=== PATIENT | male | born 1985 | race Caucasian/White ===

== ENCOUNTER 2016-12-19 08:52 | Emergency (ER) | payer OTHER ==
[2016-12-19 09:04] VITALS: BP 110/70; PULSE 65; TEMP 97.8; BMI 35.9
--- NOTE | 2016-12-19 09:37 | PDOC ---
History of Present Illness - General Chief Complaint: Cold Symptoms Stated Complaint: COUGH, CONGESTION, THROAT PAIN Time Seen by Provider: 12/19/16 09:10 History Source: Patient Exam Limitations: No Limitations - History of Present Illness Initial Comments: 12/19/16 09:34 31 yr male with sneezing nasal congestion for 3 days. Pt denies shortness of breath or cough, has sore throat. Pt' s young son with same at home. Pt has asthma well controlled . Past History - Past Medical History Allergies/Adverse Reactions: Allergies Allergy/AdvReac Type Severity Reaction Status Date / Time No Known Allergies Allergy Verified 12/19/16 09:00 Home Medications: Ambulatory Orders Oseltamivir Phosphate [Tamiflu -] 75 mg PO BID #10 capsule 09/02/16 Fluticasone Prop 0.05% Nasal [Flonase -] 1 - 2 spray NS DAILY #1 spray.pump Asthma: Yes Suicide Attempt (Hx): No - Psycho/Social/Smoking Cessation Hx Anxiety: No Suicidal Ideation: No Smoking History: Never smoked Have you smoked in the past 12 months: No Number of Cigarettes Smoked Daily: 5 Information on smoking cessation initiated: Yes 'Breaking Loose' booklet given: 12/19/16 Hx Alcohol Use: No Drug/Substance Use Hx: No Substance Use Type: None Respiratory Specific PMHX - Complaint Specific PMHX Bronchitis: No Pneumonia: No Review of Systems - Review of Systems Able to Perform ROS?: Yes Is the patient limited Mauritian proficient: No Constitutional: No: Symptoms Reported HEENTM: Yes: See HPI Cardiac (ROS): No: Symptoms Reported ABD/GI: No: Symptoms Reported : No: Symptoms Reported Musculoskeletal: No: Symptoms Reported Integumentary: No: Symptoms Reported Neurological: No: Symptoms reported *Physical Exam - Vital Signs Last Vital Signs Temp Pulse Resp BP Pulse Ox 97.8 F 65 18 110/70 100 12/19/16 09:00 12/19/16 09:00 12/19/16 09:00 12/19/16 09:00 12/19/16 09:00 - Physical Exam General Appearance: Yes: Nourished, Appropriately Dressed HEENT: positive: EOMI, MENDOZA, TMs Normal, Pharyngeal Erythema, Nasal Congestion. negative: Sinus Tenderness Neck: positive: Supple. negative: Tender Respiratory/Chest: positive: Lungs Clear, Normal Breath Sounds. negative: Wheezing Cardiovascular: positive: Regular Rhythm, Regular Rate Medical Decision Making - Medical Decision Making 12/19/16 09:36 cc: sneezing, nasal congestion, sore throat states fever last night took ibuprofen well appearing non toxic will r/o strep r/o flu *DC/Admit/Observation/Transfer Diagnosis at time of Disposition: Viral URI - Discharge Dispostion Disposition: HOME Condition at time of disposition: Good - Prescriptions Prescriptions: Fluticasone Prop 0.05% Nasal [Flonase -] 1 - 2 spray NS DAILY #1 spray.pump - Referrals Referrals: Rodolfo Pierre MD [Primary Care Provider] - Mukesh Stapleton MD [Staff Physician] - - Patient Instructions Additional Instructions: negative for strep and negative for Flu B or A drink pleanty of fluids gargle with warm salt water 4-5 times a day to help with sore throat honey and lemon in tea is helpful increase vitamin C and Zinc intake use the prescribed nasal spray for sinus congestion discharge , sneezing follow with ENT if symptoms worsen or persist
== END 2016-12-19 10:49 | disposition home or self-care (01) ==
LOC: JERFT 08:52
DX: J06.9 Acute upper respiratory infection, unspecified (principal); B34.9 Viral infection, unspecified; J45.909 Unspecified asthma, uncomplicated
CPT/HCPCS: 87070; 87430; 87804; 99281-25

== ENCOUNTER 2017-04-09 11:48 | Emergency (ER) | payer OTHER ==
[2017-04-09 11:56] VITALS: BP 123/73; PULSE 66; TEMP 98.3; BMI 34.4
--- NOTE | 2017-04-09 12:41 | PDOC ---
History of Present Illness - General Chief Complaint: Rash Stated Complaint: HEADACHE Time Seen by Provider: 04/09/17 12:19 History Source: Patient - History of Present Illness Initial Comments: 04/09/17 12:31 32 year old male with localized pustules to occipital area of scalp. reports shaving head a few days ago. no other pustular areas noted to face . denies fever. patient reports tingling and slight pain at the site. Past History - Past Medical History Allergies/Adverse Reactions: Allergies Allergy/AdvReac Type Severity Reaction Status Date / Time No Known Allergies Allergy Verified 04/09/17 11:56 Home Medications: Ambulatory Orders Mupirocin Ointment [Bactroban 2% Ointment -] 1 applic TP TID #1 applic 04/09/17 Sulfamethoxazole/Trimethoprim [Bactrim Ds -] 1 tab PO BID #14 tablet 04/09/17 Asthma: Yes Suicide Attempt (Hx): No - Psycho/Social/Smoking Cessation Hx Anxiety: No Suicidal Ideation: No Smoking History: Never smoked Have you smoked in the past 12 months: No Number of Cigarettes Smoked Daily: 5 Information on smoking cessation initiated: No 'Breaking Loose' booklet given: 12/19/16 Hx Alcohol Use: Yes Drug/Substance Use Hx: No Substance Use Type: None *Physical Exam - Vital Signs Last Vital Signs Temp Pulse Resp BP Pulse Ox 98.3 F 66 16 123/73 98 04/09/17 11:53 04/09/17 11:53 04/09/17 11:53 04/09/17 11:53 04/09/17 11:53 - Physical Exam General Appearance: Yes: Appropriately Dressed Integumentary: positive: Normal Color, Dry, Warm, Other (multiple pustules to ) Neurologic: positive: Fully Oriented, Alert, Normal Mood/Affect Progress Note - Progress Note Progress Note: A: SKin infection with multiple pustular lesion likely MRSA. will cover P: mupriocin And bactrim wound culture *DC/Admit/Observation/Transfer Diagnosis at time of Disposition: Pustular folliculitis - Discharge Dispostion Disposition: HOME - Prescriptions Prescriptions: Sulfamethoxazole/Trimethoprim [Bactrim Ds -] 1 tab PO BID #14 tablet Mupirocin Ointment [Bactroban 2% Ointment -] 1 applic TP TID #1 applic - Referrals Referrals: Frantz Abreu [Primary Care Provider] - 2 Days (wound check) - Patient Instructions Printed Discharge Instructions: DI for Staph Infection Additional Instructions: clean skin . throw away old razors apply mupirocin as prescribed. take bactrim as prescribed. follow up with your doctor in 2 days for a wound check.
== END 2017-04-09 13:20 | disposition home or self-care (01) ==
LOC: JERFT 11:48
DX: L73.8 Other specified follicular disorders (principal)
CPT/HCPCS: 87070; 87186; 87205; 99281-25

== ENCOUNTER 2017-07-16 12:02 | Emergency (ER) | payer OTHER ==
[2017-07-16 12:06] VITALS: BP 131/50; PULSE 67; TEMP 97.7; BMI 35.2
[2017-07-16] MEDS ORDERED: TETRACAINE 0.5% OPHTH SOLN 2 ML BOTTLE ONE (13:27)
--- NOTE | 2017-07-16 14:09 | PDOC ---
History of Present Illness - General Chief Complaint: Foreign Body (FB) Stated Complaint: EYE PROBLEM Time Seen by Provider: 07/16/17 13:19 History Source: Patient Exam Limitations: No Limitations - History of Present Illness Initial Comments: 07/16/17 15:03 My chief complaint: Foreign body in left eye with pain when working today History of present illness: Patient is a 32-year-old male with a history of asthma here today with what he thinks is a tiny piece of metal in his left eye that flew up and hit him when his goggles slipped downward at work today. Patient reports that the area is painful. Patient denies any tearing or any visual changes. Patient is up-to-date with tetanus. Occurred: reports: this morning (at 11 am ) Severity: reports: moderate Pain Location: reports: other (left eye ) Method of Injury: Yes: other (tiny piece of metal left eye along iris at 7 o' clock at work today) Past History - Past Medical History Allergies/Adverse Reactions: Allergies Allergy/AdvReac Type Severity Reaction Status Date / Time No Known Allergies Allergy Verified 07/16/17 12:06 Home Medications: Ambulatory Orders NK [No Known Home Medication] 07/16/17 Asthma: Yes - Suicide/Smoking/Psychosocial Hx Smoking History: Never smoked Have you smoked in the past 12 months: No Number of Cigarettes Smoked Daily: 5 Information on smoking cessation initiated: No 'Breaking Loose' booklet given: 12/19/16 Hx Alcohol Use: No Drug/Substance Use Hx: No Substance Use Type: None Review of Systems - Review of Systems Able to Perform ROS?: Yes Constitutional: No: Symptoms Reported HEENTM: Yes: Eye Pain (left eye edge of iris tiny foreign body noted at 7 o' clock). No: Blurred Vision, Tearing Respiratory: No: Symptoms reported Cardiac (ROS): No: Symptoms Reported ABD/GI: No: Symptoms Reported : No: Symptoms Reported Musculoskeletal: No: Symptoms Reported Integumentary: No: Symptoms Reported Neurological: No: Symptoms reported *Physical Exam - Vital Signs Last Vital Signs Temp Pulse Resp BP Pulse Ox 97.7 F 67 18 131/50 100 07/16/17 12:04 07/16/17 12:04 07/16/17 12:04 07/16/17 12:04 07/16/17 12:04 - Physical Exam General Appearance: Yes: Appropriately Dressed HEENT: positive: EOMI, MENDOZA, Other (tiny foreign body noted edge of iris at 7 o' clock ). negative: Photophobia Respiratory/Chest: positive: Lungs Clear, Normal Breath Sounds Cardiovascular: positive: Regular Rhythm, Regular Rate, S1, S2 Integumentary: positive: Normal Color Procedures - Additional Procedures Progress: 07/16/17 19:15 Medical Decision Making - Medical Decision Making 07/16/17 15:08 Patient is a 32-year-old male with a history of asthma here today with what he thinks is a tiny piece of metal in his left eye that flew up and hit him when his goggles slipped downward at work today. Patient reports that the area is painful. Patient denies any tearing or any visual changes. Patient is up-to- date with tetanus. foreign body left eye PLAN: Dr. Elizabeth called multiple times called confidential secretary called back to say he does not take Workmen's Comp. was given a phone number of a doctor in [place] it takes Workmen's Comp. Dr. Taylor she was called, cannot see pt. today Dr. Elizabeth's office called back he will meet patient at his office at 4:30 today to remove foreign body 07/16/17 15:10 07/16/17 19:15 *DC/Admit/Observation/Transfer Diagnosis at time of Disposition: Foreign body in cornea, left eye, initial encounter - Discharge Dispostion Disposition: HOME Condition at time of disposition: Stable - Referrals Referrals: Frantz Abreu [Primary Care Provider] - Car Robles MD [Staff Physician] - - Patient Instructions Additional Instructions: You must go to Dr. Robles's office at 4:30 today do not rub your left eye or put anything in it Patient voiced understanding of discharge instructions and all questions were answered - Post Discharge Activity
== END 2017-07-16 16:21 | disposition home or self-care (01) ==
LOC: JERFT 12:02
DX: T15.02XA Foreign body in cornea, left eye, initial encounter (principal); X58.XXXA Exposure to other specified factors, initial encounter; Y93.H3 Activity, building and construction; Y92.69 Other specified industrial and construction area as the place of occurrence of the external cause; Y99.0 Civilian activity done for income or pay
CPT/HCPCS: 99281-25

== ENCOUNTER 2018-09-12 12:00 | Emergency (ER) | payer SELFPAY ==
[2018-09-12] MEDS ORDERED: ONDANSETRON 4 MG/2 ML VIAL IVPUSH ONE (12:09)
[2018-09-12] MEDS ORDERED: FAMOTIDINE 20 MG/50 ML IVPB 20 MG/50 ML MG IVPB ONE (12:09)
[2018-09-12] MEDS ORDERED: SODIUM CHLORIDE 1,000 ML IV STA (12:09)
--- NOTE | 2018-09-12 12:09 | PDOC ---
Rapid Medical Evaluation Medical Evaluation: Allergies Allergy/AdvReac Type Severity Reaction Status Date / Time No Known Allergies Allergy Verified 07/16/17 12:06 I have performed a brief in-person evaluation of this patient. The patient presents with a chief complaint of: Hx of asthma; Since 3 days ago, having sharp epigastric pain, NBNB emesis, watery diarrhea; denies recent travel , possible bad food exposure Pertinent physical exam findings: In NAD, abdomen soft, ND, NT I have ordered the following: Labs, IVF, Zofran, Pepcid The patient will proceed to the ED for further evaluation. 09/12/18 12:06
[2018-09-12 12:11] VITALS: BP 122/62; PULSE 85; TEMP 98.2; BMI 35.2
[2018-09-12] MEDS ORDERED: ONDANSETRON *ODT* 4 MG TABLET SL ONE (14:18)
[2018-09-12] MEDS ORDERED: RANITIDINE HCL 150 MG TABLET (FP) PO ONE (14:18)
[2018-09-12] MEDS ORDERED: MAG HYDROX/AL HYDROX/SIMETH 30 ML UNIT-DOSE CUP PO ONE (14:21)
--- NOTE | 2018-09-12 14:22 | PDOC ---
Attending Attestation - HPI HPI: 09/12/18 14:41 The patient is a 33 year old male, with a significant past medical history of asthma, who presents to the emergency department with abdominal pain for the past 3-4 days. He states that his abdominal pain is worse in the epigastric region. The patient additionally reports nausea, one episode of nonbilious nonbloody emesis and a couple episodes of nonbloody watery diarrhea yesterday. He has been able to tolerate oral intake, he reports that he has been trying to drink dorinda jeffery. The patient denies fever, chills, shortness of breath. He denies any sick contacts. Allergies: None reported. Past Surgical History: None reported. Social History: Non-smoker. Denies alcohol or drug use. - Physicial Exam PE: 09/12/18 14:35 GENERAL: The patient is in no acute distress. HEAD: Normal with no signs of trauma. EYES: PERRLA, EOMI, sclera anicteric, conjunctiva clear. ENT: Ears normal, nares patent, oropharynx clear without exudates. Moist mucous membranes. NECK: Normal range of motion, supple without lymphadenopathy, JVD, or masses. LUNGS: Breath sounds equal, clear to auscultation bilaterally. No wheezes, no crackles. HEART: Regular rate and rhythm, normal S1 and S2 without murmur, rub or gallop. ABDOMEN: Mild epigastric tenderness to palpation. Soft, normoactive bowel sounds. No guarding, no rebound. No masses palpable. EXTREMITIES: Normal range of motion, no edema. No clubbing or cyanosis. No erythema, or tenderness. NEUROLOGICAL: Cranial nerves II through XII grossly intact. Normal speech. No focal neurological deficits. MUSCULOSKELETAL: Back nontender to palpation. No CVA tenderness. SKIN: Warm, dry, normal turgor, no rashes or lesions noted. Documentation prepared by Zahida Talbert, acting as medical research assistant for Luna Cat MD. <Zahida Henriquez - Last Filed: 09/12/18 14:41> - Resident Resident Name: Ta Chan - ED Attending Attestation I have performed the following: I have examined & evaluated the patient, The case was reviewed & discussed with the resident, I agree w/resident's findings & plan, Exceptions are as noted - Medical Decision Making 09/12/18 14:57 33 yo M presenting to the ER with a complaint of nausea, vomiting, diarrhea No fevers or chills Pt is tolerating po at home - liquids, and limited solids No recent travel No ill contacts No blood in stool Pt went to work today but continues to have nausea, vomiting and diarrhea and left work Pt requesting a work note On examination, pt has NO lower abdominal tenderness to palpation Epigastric tenderness Moist mucous membranes Will discharge to home Follow up with PMD <Luna Cat - Last Filed: 09/13/18 10:46>
[2018-09-12] MEDS ORDERED: MAG HYDROX/AL HYDROX/SIMETH 30 ML UNIT-DOSE CUP ONE (14:23)
[2018-09-12] MEDS ORDERED: RANITIDINE HCL 150 MG TABLET (FP) ONE (14:23)
[2018-09-12] MEDS ORDERED: ONDANSETRON *ODT* 4 MG TABLET ONE (14:24)
--- NOTE | 2018-09-12 15:07 | PDOC ---
History of Present Illness - General Chief Complaint: Nausea/Vomiting Stated Complaint: NAUSEA/VOMITING Time Seen by Provider: 09/12/18 13:10 History Source: Patient Exam Limitations: No Limitations - History of Present Illness Initial Comments: 09/12/18 14:58 Patient is a 33M with no significant medical history complaining of 3 days of vomiting with 3 episodes of diarrhea. Patient endorses an epigastric abdominal pain that burnette and radiates to his chest. Denies surgical history. Denies blood in vomit and stool. Denies surgical history. Patient endorses being able to tolerate PO and has empty dorinda jeffery in his hand. Endorses subjective fever, denies chills. Denies lower abdominal pain, dysuria and testicular pain. Past History - Past Medical History Allergies/Adverse Reactions: Allergies Allergy/AdvReac Type Severity Reaction Status Date / Time No Known Allergies Allergy Verified 07/16/17 12:06 Home Medications: Ambulatory Orders Ondansetron [Zofran *Odt*] 8 mg SL BID #10 od.tablet 09/12/18 Asthma: Yes COPD: No - Suicide/Smoking/Psychosocial Hx Smoking History: Never smoked Have you smoked in the past 12 months: No Number of Cigarettes Smoked Daily: 5 'Breaking Loose' booklet given: 12/19/16 Hx Alcohol Use: No Drug/Substance Use Hx: No Substance Use Type: None Review of Systems - Review of Systems Able to Perform ROS?: Yes Comments:: 09/12/18 15:07 GENERAL/CONSTITUTIONAL: No fever or chills. No weakness. HEAD, EYES, EARS, NOSE AND THROAT: No change in vision. No sore throat. CARDIOVASCULAR: No chest pain or shortness of breath RESPIRATORY: No cough, wheezing, or hemoptysis. GASTROINTESTINAL: +nausea, vomiting, diarrhea GENITOURINARY: No dysuria, frequency, or change in urination. MUSCULOSKELETAL: No joint or muscle swelling or pain. No neck or back pain. SKIN: No rash NEUROLOGIC: No headache, vertigo, loss of consciousness, or change in strength/ sensation. ENDOCRINE: No increased thirst. No abnormal weight change HEMATOLOGIC/LYMPHATIC: No anemia, easy bleeding, or history of blood clots. ALLERGIC/IMMUNOLOGIC: No hives or skin allergy. *Physical Exam - Vital Signs Last Vital Signs Temp Pulse Resp BP Pulse Ox 98.2 F 85 16 122/62 99 09/12/18 12:08 09/12/18 12:08 09/12/18 12:08 09/12/18 12:08 09/12/18 12:08 - Physical Exam Comments: 09/12/18 15:07 GENERAL: Awake, alert, and fully oriented, in no acute distress HEAD: No signs of trauma, normocephalic, atraumatic EYES: PERRLA, EOMI, sclera anicteric, conjunctiva clear ENT: Auricles normal inspection, hearing grossly normal, nares patent, oropharynx clear without exudates. Moist mucosa NECK: Normal ROM, supple, no lymphadenopathy, JVD, or masses LUNGS: No distress, speaks full sentences, clear to auscultation bilaterally HEART: Regular rate and rhythm, normal S1 and S2, no murmurs, rubs or gallops, peripheral pulses normal and equal bilaterally. ABDOMEN: Soft, nontender, normoactive bowel sounds. No guarding, no rebound. No masses EXTREMITIES: Normal inspection, Normal range of motion, no edema. No clubbing or cyanosis. NEUROLOGICAL: Cranial nerves II through XII grossly intact. Normal speech, normal gait, no focal sensorimotor deficits SKIN: Warm, Dry, normal turgor, no rashes or lesions noted. Moderate Sedation - Procedure Monitoring Vital Signs: Procedure Monitoring Vital Signs Temperature 98.2 F 09/12/18 12:08 Pulse Rate 85 09/12/18 12:08 Respiratory Rate 16 09/12/18 12:08 Blood Pressure 122/62 09/12/18 12:08 O2 Sat by Pulse Oximetry (%) 99 09/12/18 12:08 ED Treatment Course - Medications Given in the ED: ED Medications Discontinued Medications Generic Name Dose Route Start Last Admin Trade Name Stanleyq PRN Reason Stop Dose Admin Al Hydroxide/Mg Hydroxide 30 ml 09/12/18 14:21 09/12/18 14:24 Mylanta Oral Suspension - PO 09/12/18 14:22 30 ml ONCE ONE Administration Famotidine/Sodium Chloride 20 mg in 50 mls @ 100 mls/hr 09/12/18 12:09 14:25 Pepcid 20 Mg Premixed Ivpb - IVPB 09/12/18 12:38 Not Given ONCE ONE Sodium Chloride 1,000 mls @ 1,000 mls/hr 09/12/18 12:09 09/12/18 14:24 Normal Saline - IV 09/12/18 13:08 Not Given ASDIR STA Ondansetron HCl 4 mg 09/12/18 12:09 09/12/18 14:25 Zofran Injection IVPUSH 09/12/18 12:10 Not Given ONCE ONE Ondansetron HCl 8 mg 09/12/18 14:18 09/12/18 14:24 Zofran Odt - SL 09/12/18 14:19 8 mg ONCE ONE Administration Ranitidine HCl 300 mg 09/12/18 14:18 09/12/18 14:24 Zantac - PO 09/12/18 14:19 300 mg ONCE ONE Administration Medical Decision Making - Medical Decision Making 09/12/18 15:08 Patient is 33M here today with vomiting and diarrhea. Vitals normal and stable. Nontender belly exam. Asking for work note. Believe patient likely has gastroenteritis, no signs of serious intra-abdominal process. Will treat with maalox, pepcid, zofran. Metabolic derangement very unlikely. Will discharge home with pcp follow up and return precautions. *DC/Admit/Observation/Transfer Diagnosis at time of Disposition: Gastroenteritis - Discharge Dispostion Disposition: HOME Condition at time of disposition: Good Decision to Admit order: No - Prescriptions Prescriptions: Ondansetron [Zofran *Odt*] 8 mg SL BID #10 od.tablet - Referrals Referrals: Shantal Thomas [Primary Care Provider] - - Patient Instructions Printed Discharge Instructions: DI for Viral Gastroenteritis -- Adult Additional Instructions: Please return if you have any new, worsening or concerning symptoms, especially increasing pain and inability to keep fluids down. Please follow up with your primary care doctor this week. - Post Discharge Activity Forms/Work/School Notes: Back to Work
== END 2018-09-12 15:16 | disposition home or self-care (01) ==
LOC: JERFT 12:00 → JER 12:00
DX: K52.9 Noninfective gastroenteritis and colitis, unspecified (principal)
CPT/HCPCS: 99283-25; Q0162

== ENCOUNTER 2022-03-09 07:32 | Emergency (ER) | payer OTHER ==
[2022-03-09 08:00] VITALS: BP 109/68; PULSE 73; TEMP 98.7; BMI 35.2
[2022-03-09] MEDS ORDERED: DEXAMETHASONE SOD PHOSPHATE 10 MG/1 ML VIAL PO ONE (08:39)
== END 2022-03-09 10:19 | disposition home or self-care (01) ==
LOC: JER 07:32
DX: J06.9 Acute upper respiratory infection, unspecified (principal)
CPT/HCPCS: 0241U-QW; 99283-25; J1100

== ENCOUNTER 2022-03-13 09:15 | Emergency (ER) | payer OTHER ==
[2022-03-13 09:24] VITALS: BP 128/76; PULSE 71; TEMP 98.8; BMI 34.0
[2022-03-13] MEDS ORDERED: IBUPROFEN 600 MG TABLET (FP) PO ONE ×2 (10:00→10:05)
[2022-03-13] MEDS ORDERED: DEXAMETHASONE LIQUID 0.5 MG/5 ML PO ONE (10:00)
[2022-03-13] MEDS ORDERED: DEXAMETHASONE SOD PHOSPHATE 10 MG/1 ML VIAL ONE (10:05)
== END 2022-03-13 11:00 | disposition home or self-care (01) ==
LOC: JER 09:15
DX: K12.2 Cellulitis and abscess of mouth (principal)
CPT/HCPCS: 99283-25

== ENCOUNTER 2022-10-18 08:54 | Emergency (ER) | payer OTHER ==
[2022-10-18 09:10] VITALS: BP 123/61; PULSE 70; RESP 16; TEMP 98.5; BMI 39.9
== END 2022-10-18 10:39 | disposition home or self-care (01) ==
LOC: JER 08:54
DX: J02.0 Streptococcal pharyngitis (principal)
CPT/HCPCS: 0241U-QW; 87651; 99283-25

== ENCOUNTER 2022-11-04 08:16 | Emergency (ER) | payer OTHER ==
[2022-11-04 08:28] VITALS: BP 152/57; PULSE 68; RESP 18; TEMP 97.6; BMI 36.3
[2022-11-04] MEDS ORDERED: ACETAMINOPHEN 500 MG TABLET (FP) PO ONE (09:25)
[2022-11-04] MEDS ORDERED: ACETAMINOPHEN 325 MG TABLET (FP) ONE (09:55)
== END 2022-11-04 12:20 | disposition home or self-care (01) ==
LOC: JER 08:16
DX: S02.2XXA Fracture of nasal bones, initial encounter for closed fracture (principal); S06.0X0A Concussion without loss of consciousness, initial encounter; Y93.71 Activity, boxing
CPT/HCPCS: 70450-TC; 70486-TC; 71250-TC; 99284-25

== ENCOUNTER 2023-04-30 11:00 | Emergency (ER) | payer OTHER ==
[2023-04-30 11:24] VITALS: BP 138/70; PULSE 71; RESP 19; TEMP 98.1; BMI 35.2
[2023-04-30 12:54] LABS: THROAT:GRP A STREP NOT DETECTED (NOTDETECTED)
== END 2023-04-30 13:24 | disposition home or self-care (01) ==
LOC: JERFT 11:14
DX: R50.9 Fever, unspecified (principal); R05.9 Cough, unspecified; R09.89 Other specified symptoms and signs involving the circulatory and respiratory systems; R07.0 Pain in throat; R09.81 Nasal congestion; R09.82 Postnasal drip; U07.1 COVID-19
CPT/HCPCS: 0241U-QW; 71046-TC-FY; 87651; 99284-25

== ENCOUNTER 2023-06-02 12:04 | Emergency (ER) | payer OTHER ==
[2023-06-02 12:40] VITALS: BP 140/78; PULSE 70; RESP 16; TEMP 97.6; BMI 36.6
[2023-06-02] MEDS ORDERED: LIDOCAINE 5% TOPICAL PATCH ONE (12:57)
[2023-06-02] MEDS ORDERED: NAPROXEN 500 MG TABLET PO ONE (13:45)
[2023-06-02] MEDS ORDERED: NAPROXEN 500 MG TABLET ONE (13:50)
[2023-06-02 14:36] LABS: BASO % 0.3 % (0-2.0); EOS % 0.9 % (0-4.5); HEMATOCRIT 43.9 % (35.4-49); HEMOGLOBIN 15.1 GM/dL (11.7-16.9); LYMPH % 16.3 % (8-40); MCH 30.2 pg (25.7-33.7); MCHC 34.5 g/dl (32.0-35.9); MEAN CELL VOLUME 87.6 fl (80-96); MEAN PLT VOLUME 9.4 fl (7.5-11.1); MONO % 6.6 % (3.8-10.2); NEUT % 75.9 % (42.8-82.8); PLATELET COUNT 202 10^3/uL (134-434); RBC 5.01 M/mm3 (4.00-5.60); RDW 14.4 % (11.9-15.9); WHITE BLOOD COUNT 8.7 K/mm3 (4.0-10.0)
[2023-06-02] MEDS ORDERED: DEXAMETHASONE SOD PHOSPHATE 10 MG/1 ML VIAL IM ONE (14:47)
[2023-06-02] MEDS ORDERED: DEXAMETHASONE SOD PHOSPHATE 10 MG/1 ML VIAL ONE (14:51)
[2023-06-02 14:55] LABS: CHLORIDE 110 mmol/L (98-107); POTASSIUM 4.1 mmol/L (3.5-5.1); SODIUM 141 mmol/L (136-145)
[2023-06-02 14:56] LABS: ANION GAP 6 MMOL/L (8-16); CALCIUM 8.2 mg/dL (8.5-10.1); CO2 26 mmol/L (21-32)
[2023-06-02 14:57] LABS: BLOOD UREA NITROGEN 13.3 mg/dL (7-18); GLUCOSE,RANDOM 100 mg/dL (74-106)
[2023-06-02 14:59] LABS: URIC ACID 8.3 mg/dL (2.6-7.2)
[2023-06-02 15:00] LABS: CREATININE 1.1 mg/dL (0.55-1.3)
[2023-06-02 15:14] LABS: ERYTHROCYTE SEDIMENTATION RATE 5 mm/hr (0-10)
== END 2023-06-02 15:28 | disposition home or self-care (01) ==
LOC: JERFT 12:04
PROC: 3E023GC Introduction of Other Therapeutic Substance into Muscle, Percutaneous Approach (ICD-10-PCS; principal; 2023-06-02)
DX: M79.672 Pain in left foot (principal); M79.675 Pain in left toe(s); M10.9 Gout, unspecified
CPT/HCPCS: 36415; 73630-TC-LT; 80048; 84550; 85025; 85651; 86140; 99284-25; J1100

== ENCOUNTER 2023-08-22 01:13 | Emergency (ER) | payer OTHER ==
[2023-08-22 01:24] VITALS: BP 136/78; PULSE 66; RESP 18; TEMP 97.7; BMI 38.0
[2023-08-22] MEDS ORDERED: KETOROLAC TROMETHAMINE 30 MG/1 ML VIAL IM ONE (01:49)
[2023-08-22] MEDS ORDERED: LIDOCAINE 5% TOPICAL PATCH TP ONE ×2 (01:49)
[2023-08-22] MEDS ORDERED: ACETAMINOPHEN 325 MG TABLET (FP) PO ONE (01:49)
[2023-08-22] MEDS ORDERED: LIDOCAINE 4% PATCH TP ONE (02:00)
[2023-08-22] MEDS ORDERED: ACETAMINOPHEN 325 MG TABLET (FP) ONE (02:00)
[2023-08-22] MEDS ORDERED: KETOROLAC TROMETHAMINE 30 MG/1 ML VIAL ONE (02:01)
[2023-08-22 03:37] LABS: BASO % 0.3 % (0-2.0); EOS % 0.9 % (0-4.5); HEMOGLOBIN 15.1 GM/dL (11.7-16.9); LYMPH % 23.2 % (8-40); MCH 30.2 pg (25.7-33.7); MEAN PLT VOLUME 8.6 fl (7.5-11.1); MONO % 7.7 % (3.8-10.2); NEUT % 67.9 % (42.8-82.8); PLATELET COUNT 191 10^3/uL (134-434); WHITE BLOOD COUNT 7.5 K/mm3 (4.0-10.0)
[2023-08-22 03:54] LABS: POTASSIUM 3.8 mmol/L (3.5-5.1)
[2023-08-22 03:56] LABS: CALCIUM 8.4 mg/dL (8.5-10.1)
[2023-08-22 03:57] LABS: ALBUMIN 3.9 g/dl (3.4-5.0)
[2023-08-22 04:00] LABS: CREATININE 1.3 mg/dL (0.55-1.3)
[2023-08-22 04:01] LABS: BILIRUBIN,TOTAL 1.4 mg/dL (0.2-1)
[2023-08-22 04:02] LABS: TOT PROT 7.3 g/dl (6.4-8.2)
[2023-08-22] MEDS ORDERED: LIDOCAINE PATCH REMOVAL MC ONE (14:00)
[2023-08-22] MEDS ORDERED: LIDOCAINE PATCH REMOVAL MC SCH (22:00)
== END 2023-08-22 04:24 | disposition home or self-care (01) ==
LOC: JER 01:13
PROC: 3E0233Z Introduction of Anti-inflammatory into Muscle, Percutaneous Approach (ICD-10-PCS; principal; 2023-08-22)
DX: R07.9 Chest pain, unspecified (principal); M25.512 Pain in left shoulder; G47.9 Sleep disorder, unspecified
CPT/HCPCS: 36415; 71046-TC-FY; 73030-TC-LT-FY; 80053; 84484; 85025; 93005; 93010; 99285-25

== ENCOUNTER 2024-02-13 13:57 | Emergency (ER) | payer OTHER ==
[2024-02-13 14:06] VITALS: BP 128/61; PULSE 67; RESP 18; TEMP 97.3; BMI 35.9
== END 2024-02-13 16:31 | disposition home or self-care (01) ==
LOC: JERFT 13:57
DX: R09.81 Nasal congestion (principal); R05.9 Cough, unspecified; R06.7 Sneezing; J06.9 Acute upper respiratory infection, unspecified; J00 Acute nasopharyngitis [common cold]; Z20.822 Contact with and (suspected) exposure to COVID-19
CPT/HCPCS: 0241U-QW; 99283-25

== ENCOUNTER 2024-05-14 21:35 | Emergency (ER) | payer OTHER ==
[2024-05-14 21:42] VITALS: BP 131/75; PULSE 64; RESP 18; TEMP 97.5; BMI 36.6
== END 2024-05-14 22:48 | disposition left against medical advice (07) ==
LOC: JER 21:35
DX: T17.228A Food in pharynx causing other injury, initial encounter (principal)
CPT/HCPCS: 99281-25